=== PATIENT | male | born 1950 | race Caucasian/White ===

== ENCOUNTER 2018-10-15 18:16 | Emergency (ER) | payer OTHER, MEDICAID ==
[~2018-10-15] VITALS: Ht 175.3 cm; Wt 79.4 kg
[2018-10-15 18:16] VITALS: BP_SYST 146
[2018-10-15 18:52] VITALS: BP_SYST 146
== END 2018-10-15 18:52 | disposition home or self-care (01) ==
LOC: SED 18:16
DX: B35.4 Tinea corporis (principal)
CPT/HCPCS: 99283